=== PATIENT | female | born 1945 | race Two or more races ===

== ENCOUNTER 2023-10-19 13:26 | Emergency (ER) | payer OTHER ==
[~2023-10-19] VITALS: Ht 160 cm; Wt 72.6 kg
[2023-10-19] MEDS ORDERED: SYNTHROID50 MCG PO (14:15)
[2023-10-19] MEDS ORDERED: LOSARTAN POTASS50 MG PO (14:15)
[2023-10-19] MEDS ORDERED: cloNIDine HCL 0.2 MG TABLET PO STA (15:15)
[2023-10-19 15:38] LABS: HEMATOCRIT 35.6 % (36.0-45.00); MEAN CELL VOLUME 86.2 fL (80.00-100.00); MEAN CORPUSCULAR HGB CONC 33.6 g/dl (32.0-36.0); PLATELET COUNT 253 K/uL (150-450); RED BLOOD COUNT 4.13 M/uL (4.00-6.00); RED CELL DISTRIBUTION WIDTH 17.1 % (11.5-14.5)
== END 2023-10-19 16:57 | disposition home or self-care (01) ==
LOC: ER 13:27
PROVIDERS: General Practice
DX: M25.512 Pain in left shoulder (principal); I10 Essential (primary) hypertension; Z88.2 Allergy status to sulfonamides